=== PATIENT | female | born 1930 | race Caucasian/White ===

== ENCOUNTER 2018-10-23 19:23 | Emergency (ER) | payer OTHER ==
[~2018-10-23] VITALS: Ht 167.6 cm; Wt 90.0 kg
[2018-10-23] MEDS ORDERED: LEVO25TA4 PO (19:32)
[2018-10-23] MEDS ORDERED: EZET10TA18 PO (19:32)
[2018-10-23] MEDS ORDERED: PARI1CAP3 PO (19:32)
[2018-10-23] MEDS ORDERED: GLYB1.252 PO (19:32)
[2018-10-23] MEDS ORDERED: ATOR20TA37 PO (19:32)
[2018-10-23] MEDS ORDERED: ANAS1TAB PO (19:32)
[2018-10-23] MEDS ORDERED: MULT-758 PO (19:32)
[2018-10-23] MEDS ORDERED: THIA50TA PO (19:32)
[2018-10-23] MEDS ORDERED: DAPA5TAB PO (19:32)
[2018-10-23] MEDS ORDERED: LIRA0.6P SQ-INSULIN (19:35)
[2018-10-23] MEDS ORDERED: INSU100I32 SQ-INSULIN (19:35)
[2018-10-23] MEDS ORDERED: SODIUM CHLORIDE FLUSH 10ML SYR IVF ONE (20:00)
[2018-10-23] MEDS ORDERED: SODIUM CHLORIDE 0.9% 1,000ML IVBOLUS ONE (20:00)
[2018-10-23 20:17] LABS: BASOPHILS # (AUTO) 0.08 x10^3/uL (0-0.1); BASOPHILS % (AUTO) 1 % (0-1); EOSINOPHILS # (AUTO) 0.28 x10^3/uL (0-0.4); EOSINOPHILS % (AUTO) 3 % (1-7); LYMPHOCYTES # (AUTO) 1.15 x10^3/uL (1-3.4); LYMPHOCYTES % (AUTO) 11 % (22-44); MD NO; MEAN CORPUSCULAR HEMOGLOBIN 23.2 pg (27.0-34.8); MEAN CORPUSCULAR HGB CONC 31.9 g/dL (32.4-35.8); MEAN CORPUSCULAR VOLUME 72.7 fL (80-100); MEAN PLATELET VOLUME 7.3 fL (7.4-10.4); MONOCYTES # (AUTO) 0.48 x10^3/uL (0.2-0.8); MONOCYTES % (AUTO) 5 % (2-9); NEUTROPHILS # (AUTO) 8.71 x10^3/uL (1.8-6.8); NEUTROPHILS % (AUTO) 82 % (42-75); PLATELET COUNT 359 x10^3/uL (130-400); RED BLOOD COUNT 4.04 x10^6/uL (3.82-5.3); RED CELL DISTRIBUTION WIDTH 21.7 % (9.6-15.2)
[2018-10-23 20:27] LABS: ALBUMIN 2.8 g/dL (3.4-5.0); ANION GAP 8 mmol/L (5-15); CALCIUM 8.9 mg/dL (8.5-10.1); CHLORIDE 103 mmol/L (98-107); CREATININE 2.27 mg/dL (0.55-1.02)
[2018-10-23 22:02] LABS: MICROSCOPIC AUTO
[2018-10-23 22:09] LABS: CULTURE INDICATED? YES
[2018-10-23 22:43] VITALS: BP 165/81
== END 2018-10-23 22:46 | disposition home or self-care (01) ==
LOC: ED 22:15
DX: E11.65 Type 2 diabetes mellitus with hyperglycemia (principal); M54.5 Low back pain
CPT/HCPCS: 36415; 72110; 80048; 81001; 82040; 82962; 85025; 87086; 96360; 99284; J7030